=== PATIENT | male | born 2000 | race Caucasian/White ===

== ENCOUNTER 2018-06-09 23:09 | Emergency (ER) | payer BC ==
[2018-06-09] MEDS ORDERED: IBUPROFEN 600 MG TAB PO ONE (23:24)
--- NOTE | 2018-06-09 23:39 | EDPHY ---
H & P Stated Complaint: someone stepped on outside of ankle Time Seen by Provider: 06/09/18 23:26 HPI/ROS: Chief Complaint: Right ankle injury HPI: 18-year-old male was at a concert in a [facility] [place] pit. While dancing some a all stepped on his right ankle. He has had pain with ambulating since. No prior injuries. No recent illness. Patient is feeling very hot and status very hot in a concert. He has been drinking alcohol but denies any other drug use. Patient noted to be febrile in triage. He denies any symptoms of infection. ROS: 10 systems were reviewed and were negative except those elements noted in the HPI. PMH: Denies Social History: No smoking, occasional alcohol, no recreational drug use Family History: non-contributory Physical Exam: Gen: Awake, Alert, No Distress HEENT: Nose: no rhinorrhea Eyes: PERRLA, EOMI Mouth: Moist mucosa Neck: Supple, no JVD Chest: nontender, lungs clear to auscultation Heart: S1, S2 normal, no murmur Abd: Soft, non-tender, no guarding Back: no CVA tenderness, no midline tenderness Ext: Right ankle is diffusely swollen and tender primarily at the anterior talofibular ligament. Decreased range of motion secondary to pain. Skin: no rash Neuro: CN II-XII intact, Sensation grossly intact, Strength 5/5 in bilateral upper and lower extremities - Personal History Current Tetanus/Diphtheria Vaccine: Yes Current Tetanus Diphtheria and Acellular Pertussis (TDAP): Yes - Medical/Surgical History Hx Asthma: No Hx Chronic Respiratory Disease: No Hx Diabetes: No Hx Cardiac Disease: No Hx Renal Disease: No Hx Cirrhosis: No Hx Alcoholism: No Hx HIV/AIDS: No Hx Splenectomy or Spleen Trauma: No Other PMH: denies - Social History Smoking Status: Current every day smoker Constitutional: Initial Vital Signs Temperature (C) 38.3 C 06/09/18 23:17 Heart Rate 118 H 06/09/18 23:17 Respiratory Rate 18 06/09/18 23:17 Blood Pressure 122/87 H 06/09/18 23:17 O2 Sat (%) 94 06/09/18 23:17 O2 Delivery Mode Room Air Allergies/Adverse Reactions: No Known Allergies Allergy (Unverified 06/09/18 23:19) Home Medications: Medication Instructions Recorded NK [No Known Home Meds] 06/09/18 Medical Decision Making - Diagnostics Imaging Results: Imaging Impressions Ankle X-Ray 06/09/18 23:23 Impression: Lateral soft tissue swelling without definite acute fracture of the right ankle. ED Course/Re-evaluation: 18-year-old male with ankle sprain and fever. Fever likely secondary to his dancing at a hot concert. He is certainly well appearing. No signs of infection. Fevers coming down after ibuprofen. Will discharge with follow-up with primary care physician. - Data Points Medications Given: Discontinued Medications Ibuprofen (Motrin) 600 mg PO EDNOW ONE Stop: 06/09/18 23:25 Last Admin: 06/09/18 23:26 Dose: 600 mg Departure - Departure Disposition: Home, Routine, Self-Care Clinical Impression: Ankle sprain Condition: Good Instructions: Ankle Sprain (ED), Ankle Stirrup Splint (ED), Crutch Instructions (ED) Additional Instructions: Make sure to drink plenty of fluids. Alternate acetaminophen (1000 mg) with ibuprofen (400 mg) every 4 hours as needed for fevers, chills, aches or pain. Return to the emergency department for worsening cough, were uncontrolled fevers or chills, uncontrolled nausea vomiting, abdominal pain, or any other concerns. Follow up with primary care physician in 3-4 days for further evaluation. Referrals: Randall Singh MD [[facility] [place]] - As per Instructions
[2018-06-10 00:26] VITALS: BP 123/70
== END 2018-06-10 00:24 | disposition home or self-care (01) ==
DX: S93.491A Sprain of other ligament of right ankle, initial encounter (principal); R50.9 Fever, unspecified; W52.XXXA Crushed, pushed or stepped on by crowd or human stampede, initial encounter; Y93.41 Activity, dancing; Y92.89 Other specified places as the place of occurrence of the external cause
CPT/HCPCS: L4350